=== PATIENT | male | born 1980 | race Hispanic/Latino ===

== ENCOUNTER 2019-12-24 05:35 | Inpatient (IN) | payer OTHER, SELFPAY ==
[2019-12-24] MEDS ORDERED: Piperacillin/Tazobactam 4.5 GM VIAL ONE (06:00)
[2019-12-24 06:02] LABS: #Lymphocytes 0.9 thou/uL (1.20-3.40); #Monocytes 0.8 thou/uL (0.11-0.59); #Neutrophils 10.8 thou/uL (1.40-6.50); %Basophils 0.3 % (0.0-1.0); %Eosinophils 0.1 % (0.0-10.0); %Lymphocytes 7.3 % (21.0-51.0); %Monocytes 6.2 % (0.0-10.0); Hemoglobin 15.7 g/dL (14.0-18.0); Mean Corpuscular HGB CONC 34.9 g/dL (32.0-36.0); Mean Corpuscular Hemoglobin 32.2 pg (27.0-31.0); Mean Corpuscular Volume 92.3 fL (78.0-98.0); Mean Platelet Volume 10.6 fL (7.4-10.4); Platelet Count 157 thou/uL (130-400); RBC Distribution Width 12.1 % (11.5-14.5); Red Blood Cell (RBC) Count 4.88 mill/uL (4.70-6.10); White Blood Cell (WBC) Count 12.5 thou/uL (4.8-10.8)
[2019-12-24] MEDS ORDERED: Ondansetron PF 4 MG/2 ML Vial ONE (06:04)
[2019-12-24] MEDS ORDERED: Morphine 4 MG/ML VIAL ONE ×2 (06:04→07:12)
[2019-12-24 06:26] LABS: ALT (SGPT) 29 U/L (8-55); AST (SGOT) 26 U/L (5-34); Albumin 4.4 g/dL (3.5-5.0); Alkaline Phosphatase 106 U/L (40-110); Anion Gap 13 mmol/L (10-20); BUN (Urea Nitrogen) 10 mg/dL (8.9-20.6); Bilirubin, Total 0.6 mg/dL (0.2-1.2); Calc. Creatinine Clearance 0 mL/min (70-130); Calcium 8.8 mg/dL (7.8-10.44); Carbon Dioxide 24 mmol/L (22-29); Chloride 95 mmol/L (98-107); Estimated GFR-MDRD Greater than 90; Globulin 3.3 g/dL (2.4-3.5); Glucose 149 mg/dL (70-105); Lipase 13 U/L (8-78); Potassium 3.5 mmol/L (3.5-5.1); Protein, Total 7.7 g/dL (6.0-8.3); Sodium 128 mmol/L (136-145)
[2019-12-24] MEDS ORDERED: metroNIDAZOLE 500 MG/100 ML BAG ONE (07:25)
[2019-12-24] MEDS ORDERED: Acetaminophen 325 MG TAB PO PRN (08:32)
[2019-12-24] MEDS ORDERED: Sodium Chloride 0.9% 1,000 ML IV SCH (08:45)
--- NOTE | 2019-12-24 08:50 | CT ---
PRELIMINARY REPORT/[facility]/EMERGENCY AFTER HOURS PROCEDURE: EXAM: CT Abdomen and CT Pelvis, with Contrast DATE/ TIME: 12/24/2019, 6:07 AM INDICATION: Lower abdominal pain x 2 days; nausea; vomiting; diarrhea. Fever. TECHNIQUE: Helical CT was performed through the abdomen and pelvis during the intravenous administra tion of 100 mL Isovue-370. GI contrast was not utilized. Coronal and sagittal reconstructions were generated and reviewed. Exam was performed using one or more of the following dose reduction techniq ues: automated exposure control, adjustment of the mA and/or kV according to patient size, or use of iterative reconstruction technique. COMPARISON: None. FINDINGS: The lung bases are clear. There is no pleural effusion. The stomach contains a small amount of gas and liquid. Nondilated small bowel loops are of varying c aliber with several containing gas. The appendix is seen and is normal. Gas and liquid stool are se en throughout the colon; there is no formed stool. There is no intestinal pneumatosis, portal venous air or pneumoperitoneum. Gallbladder is unremarkable. Liver measures 20.3 cm longitudinally and has a coarse parenchymal bobby quan with hypoattenuation consistent with fatty infiltration. Spleen, pancreas, adrenal glands and ki dneys show normal enhancement. The abdominal aorta tapers with mild atherosclerotic plaquing noted d istally with extension into the common iliac arteries. Inferior vena cava is not flattened. Prostate is not enlarged. Urinary bladder is not distended. There is no ascites. Small umbilical h ernia contains fat. There are defects within the pars interarticularis of L4 with the L4 vertebra di splaced anteriorly with respect to L5 by 7.0 mm. There is associated disc flattening with bulging. IMPRESSION: 1. CT findings within the intestinal tract compatible with (gastro-) enterocolitis. 2. Bilateral spondylolysis of L4 with grade 1 anterolisthesis (7.0 mm) of L4 on L5. Instability wit h weight-bearing and range of motion cannot be excluded. Surgical spine consult is suggested. 3. Hepatomegaly. Hepatosteatosis. 4. Small fat-containing umbilical hernia. ELECTRONICALLY SIGNED BY: Randy Bateman DO Dec 24, 2019 6:58:26 AM CDT This report is intended for review by the ordering physician only, in accordance of law. If you recei ve this report in error, please call [facility] at [phone]. FINAL REPORT EMERGENCY AFTER HOURS CT ABDOMEN AND PELVIS: IMPRESSION: I agree with the preliminary interpretation given by [facility]. In addition, there is apparent irregular enhancing mural thickening at the right lateral margin of the rectum, which could be on th e basis of nondistention, with a mucosal lesion not excluded. Correlation with direct visualization i s recommended. CODE T. POS: BEATRIS
[2019-12-24] MEDS: NS 0.9% w/ 40 MEQ KCL 100 ML IV SCH ×4 (10:23→12:46)
[2019-12-24] MEDS: Morphine 2 MG/ML VIAL SLOW IVP PRN ×2 (10:23→16:11)
[2019-12-24 10:31] VITALS: BMI 34.5
[2019-12-24] MEDS ORDERED: Iopamidol-370 76% 500 ML 1 ML ONE (11:49)
[2019-12-24] MEDS ORDERED: NS 0.9% w/ 40 MEQ KCL 100 ML IV SCH (13:15)
[2019-12-24] MEDS: Sodium Chloride 0.9% 1,000 ML IV SCH ×2 (13:19→23:23)
[2019-12-24] MEDS: Ondansetron PF 4 MG/2 ML Vial IVP PRN ×2 (13:19→20:19)
--- NOTE | 2019-12-24 14:11 | HP ---
CHIEF COMPLAINT: Abdominal pain. HISTORY OF PRESENT ILLNESS: A 39-year-old male with remote history of negative colonoscopy and no abdominal surgery, presenting with the left lower quadrant abdominal pain that started 2 days ago. He did not notice any blood in the stool or urine. No history of hemorrhoids. He had nausea as well as emesis. Pain did not relieve with his Tylenol. Subjective fever. Denies any dysuria or hematochezia. No loose stools. Remote history of ulcer, but not inflammatory bowel disease. Remote history of gastric ulcer without diverticulitis or diverticulosis. Pain is more localized in the left lower quadrant, but it also radiating towards his epigastric area and it is sharp in nature. No flank pain or radiation to the back. ALLERGIES: HE HAS NO KNOWN DRUG ALLERGY. REVIEW OF SYSTEMS: A 13-point review of systems reviewed. The patient has a subjective fever, but without any productive cough or chills. No chest pain, orthopnea, PND. No palpitations. No cough. No short of breath. Denies headache, blurriness, tingling, or numbness in his extremities. No rash. No polyuria, polydipsia. PAST MEDICAL HISTORY: History of peptic ulcer disease. PAST SURGICAL HISTORY: No surgical history. SOCIAL HISTORY: The patient has no alcohol use. He does smoke a pack a day. MEDICATIONS: He takes pantoprazole 40 mg daily. PHYSICAL EXAMINATION: VITAL SIGNS: His temperature is 98.5, pulse 90, blood pressure 146/89, saturating 99% on room air. GENERAL: The patient complained of pain in his abdominal area, so he is in mild distress, but able to give me enough information. The patient appear in moderate distress because of abdominal pain. Otherwise, he is not toxic looking. HEENT: Pupils are equal, round, reactive to light. Anicteric. Mucous membranes moist. CARDIOVASCULAR: Regular rate and rhythm without murmurs, rubs, or gallops. LUNGS: Clear to auscultation bilaterally without wheezing, rales, or rhonchi. ABDOMEN: Soft, nontender, nondistended. Good bowel sounds. EXTREMITIES: Without any pitting edema. LABORATORY DATA: WBC 12.5, hemoglobin 15.7, platelet 157. Sodium 128, potassium 3.5, creatinine 0.86. Rest of the CMP panel normal range including a liver function test and lipase. DIAGNOSTIC STUDIES: CT abdomen showed intestinal tract compatible with enterocolitis. He also has hepatomegaly and hepatic steatosis. Irregular enhancing and mural thickening in the right lateral margin of the rectum. IMPRESSION AND PLAN: This is a 39-year-old male presenting with acute gastroenteritis of 2-day duration. The patient was admitted for supportive measures with IV fluid and antiemetic as well as analgesic. We will get stool studies. The patient does have some mural thickening in the rectal area, could be hemorrhoids versus other. He does have a normal, remote history of colonoscopy in the past. I will request GI input regarding this. The CT did not mention any diverticulitis, however, with elevated white count and GI issue as chief complaint, we will empirically start him on Cipro and Flagyl. Follow up with stool studies as well as urinalysis. It also appears there is no food poisoning. Given the nature of the COVID and atypical presentations in several cases, I will also get a chest x-ray and D- dimer as well. full code. Job ID: [id number] [facility]
[2019-12-24] MEDS: metroNIDAZOLE 500 MG in Premix Bag 1 BAG IVPB SCH ×2 (16:14→23:22)
[2019-12-24] MEDS ORDERED: Morphine 2 MG/ML SYRINGE SLOW IVP PRN (19:27)
[2019-12-24] MEDS ORDERED: Pantoprazole 40 MG VIAL IVP SCH (19:30)
--- NOTE | 2019-12-24 20:12 | CON ---
DATE OF CONSULTATION: 12/24/2019 REQUESTING PHYSICIAN: Dr. Llamas. REASON FOR CONSULTATION: Enterocolitis. HISTORY OF PRESENT ILLNESS: Trent Lu is a 39-year-old man, who was admitted to the hospital today with abdominal pain, nausea, and diarrhea. He says that this came on fairly acutely two days ago. The abdominal pain was initially in the lower abdomen, but is now more generalized throughout the abdomen. He started out with a lot of diarrhea, particularly through the day yesterday, now the diarrhea persists, but he has also been nauseated and had a few episodes of nonbloody emesis. There has been no blood in the stool. He denies any chronic gastrointestinal symptoms, though he does state that he was diagnosed with a stomach ulcer several years ago. He does not think he has ever had a colonoscopy in the past. He was started on ciprofloxacin and Flagyl IV. Stool studies have been collected, but there is no result back yet. Notably, labs show a mild leukocytosis with WBC 12.5, but normal LFTs and lipase. However, he had a CT of the abdomen and pelvis upon admission this morning and this demonstrates fluid-filled loops of bowel as well as liquid stool throughout the colon, all consistent with acute enterocolitis, but there is also an area of irregular mural thickening in the right lateral rectum and direct visualization was recommended. The patient denies any rectal or anal pain or discomfort. There has been no weight loss. There is no family history of GI malignancy that he is aware of. REVIEW OF SYSTEMS: Full review of systems including constitutional, head, eyes, ears, nose, throat, GI, , cardiovascular, respiratory, musculoskeletal, and neurologic systems is negative except as noted in the HPI. PAST MEDICAL HISTORY: Peptic ulcer disease and tobacco abuse. PAST SURGICAL HISTORY: None. ALLERGIES: NO KNOWN DRUG ALLERGIES. OUTPATIENT MEDICATIONS: Pantoprazole 40 mg daily. INPATIENT MEDICATIONS: 1. Ciprofloxacin IV. 2. Flagyl IV. 3. Morphine p.r.n. 4. Zofran p.r.n. SOCIAL HISTORY: He does smoke about one pack of cigarettes per day. He denies alcohol use. FAMILY HISTORY: Negative for GI malignancy that he is aware of. PHYSICAL EXAMINATION: VITAL SIGNS: Temperature 98.5, pulse 90, blood pressure 146/89, and 99% oxygen saturation on room air. GENERAL: A 39-year-old man lying in bed fairly comfortably, in mild distress from abdominal discomfort. MENTAL: Alert and fully oriented. Pleasant, conversational. SKIN: No jaundice. No rashes were palpable. EYES: No scleral icterus. Extraocular movements intact. ENT: Mucous membranes moist. No oral lesions. LYMPH: No submandibular or supraclavicular lymphadenopathy. THYROID: Nontender to palpation. HEART: Regular rate and rhythm. LUNGS: Clear to auscultation bilaterally. ABDOMEN: Bowel sounds present. The abdomen is soft. There is tenderness to palpation in the lower abdomen as well as the epigastrium, but no guarding or rebound tenderness. EXTREMITIES: No peripheral edema. VESSELS: Radial pulses 2+ bilaterally. NEUROLOGIC: Cranial nerves 2 through 12 intact bilaterally. No focal deficits. LABORATORY STUDIES: Sodium 128, potassium 3.5, BUN 10, creatinine 0.86, glucose 149. Lactic acid 1.7, calcium 8.8, lipase 13. LFTs all normal with total bilirubin 0.6, alkaline phosphatase 106, AST 26, ALT 29, albumin 4.4. WBC 12.5, hemoglobin 15.7, platelets 157. Stool studies collected. Fecal lactoferrin is elevated. Clostridium difficile antigen and toxin are negative. RAPID'Campylobacter and Shiga toxins are also negative. Stool culture pending. ASSESSMENT AND PLAN: 1. Acute gastroenteritis. The patient's acute presentation is consistent with an acute infectious gastroenteritis, this may be viral, note the negative Clostridium difficile and Campylobacter, awaiting full stool cultures. Fecal lactoferrin is elevated. Even if stool studies are negative, presentation seems most consistent with acute infectious gastroenteritis, which should resolve within a few days with supportive care. Okay to continue empiric antibiotics in the meantime. 2. Abnormal CT scan, suggesting irregular mural thickening in the right lateral rectum. The patient does not have any anorectal discomfort or any gastrointestinal bleeding. There is no family history of colon cancer. This finding is in the context of an acute gastroenteritis. I do think we should perform colonoscopy at some point, but certainly not in the acute setting. We can plan for outpatient colonoscopy in a few weeks after resolution of this acute episode. Thank you for the consultation. The patient is currently on a clear liquid diet, it can be advanced as tolerated once his symptoms are improving. Please call back anytime with questions or concerns. Job ID: [id number]
[2019-12-24] MEDS: Morphine 4 MG/ML VIAL SLOW IVP PRN (20:19)
[2019-12-25] MEDS: Morphine 4 MG/ML VIAL SLOW IVP PRN ×3 (06:04→22:31)
[2019-12-25 06:48] LABS: Anion Gap 12 mmol/L (10-20); BUN (Urea Nitrogen) 7 mg/dL (8.9-20.6); Calc. Creatinine Clearance 184 mL/min (70-130); Calcium 8.7 mg/dL (7.8-10.44); Carbon Dioxide 27 mmol/L (22-29); Chloride 98 mmol/L (98-107); Estimated GFR-MDRD Greater than 90; Glucose 113 mg/dL (70-105); Potassium 3.6 mmol/L (3.5-5.1); Sodium 133 mmol/L (136-145)
[2019-12-25 07:17] LABS: #Lymphocytes 1.5 thou/uL (1.20-3.40); #Monocytes 1.2 thou/uL (0.11-0.59); #Neutrophils 5.3 thou/uL (1.40-6.50); %Basophils 0.2 % (0.0-1.0); %Eosinophils 0.2 % (0.0-10.0); %Lymphocytes 18.8 % (21.0-51.0); %Monocytes 14.6 % (0.0-10.0); %Neutrophils 66.3 % (42.0-75.0); Hemoglobin 14.7 g/dL (14.0-18.0); Large Platelets SLIGHT; MDiff Complete? YES; Mean Corpuscular Hemoglobin 31.2 pg (27.0-31.0); Mean Corpuscular Volume 91.9 fL (78.0-98.0); Mean Platelet Volume 11.1 fL (7.4-10.4); Platelet Count 146 thou/uL (130-400); Platelet Morphology Comment Appears Adequate; RBC Distribution Width 12.1 % (11.5-14.5); White Blood Cell (WBC) Count 8.1 thou/uL (4.8-10.8)
[2019-12-25] MEDS: metroNIDAZOLE 500 MG in Premix Bag 1 BAG IVPB SCH ×3 (08:17→23:12)
[2019-12-25] MEDS: Sodium Chloride 0.9% 1,000 ML IV SCH ×3 (08:19→23:50)
[2019-12-25] MEDS ORDERED: Morphine 2 MG/ML VIAL SLOW IVP PRN (11:56)
[2019-12-25] MEDS ORDERED: Nicotine 21 MG PATCH TD SCH (12:00)
--- NOTE | 2019-12-25 12:20 | PRG ---
DATE OF SERVICE: 12/25/2019 SUBJECTIVE: The patient is feeling quite a bit better this morning. He did have a lot of diarrhea still throughout the night, every hour or so, but only 2 bowel movements so far this morning. Abdominal discomfort remains generalized, slightly improved, but still required morphine. He is having some recurrence of heartburn, now says that he was taking a daily PPI as an outpatient for the past 5 years for heartburn control. OBJECTIVE: VITAL SIGNS: Temperature 98.5, pulse 85, blood pressure 136/88, and 97% oxygen saturation on room air. GENERAL: No acute distress, sitting up on the edge of the bed comfortably. HEART: Regular rate and rhythm. LUNGS: Clear to auscultation bilaterally. ABDOMEN: Bowel sounds are present. Soft. Some mild tenderness to palpation throughout. No guarding or rebound tenderness. EXTREMITIES: No peripheral edema. LABORATORY STUDIES: Sodium 133, potassium 3.6, BUN 7, creatinine 0.74, glucose 113, and calcium 8.7. LFTs all normal. Lipase normal at 13. WBC 8.1, hemoglobin 14.7, and platelets 146. Stool studies show elevated fecal lactoferrin, but negative Campylobacter, negative shiga toxin, negative C difficile antigen and toxin. Stool culture showing moderate normal enteric howard only. ASSESSMENT AND PLAN: 1. Acute gastroenteritis, likely infectious. Stool studies negative so far with the exception of fecal lactoferrin, but this may represent a viral gastroenteritis. Anticipate continued symptom improvement over the next few days. Okay to continue with empiric antibiotics and supportive care in the meantime. 2. Abnormal CT scan, suggesting irregular mural thickening in the right lateral rectum. The patient does not have any anorectal discomfort or any gastrointestinal bleeding. This finding is in the context of an acute gastroenteritis. We do need to plan for followup colonoscopy at some point, but not in the acute setting. We can plan for outpatient colonoscopy in a few weeks after resolution of this acute episode. 3. Chronic gastroesophageal reflux disease. The patient says he takes daily Prilosec at home. We will go ahead and give him Protonix daily while here. Job ID: [id number]
[2019-12-25 13:54] LABS: SARS-CoV-2 MS2 Positive; SARS-CoV-2 N Gene Negative; SARS-CoV-2 S Gene Negative; SARS-CoV-2 by NAA Not Detected (NotDetected); SARS-CoV-2 orf1ab Negative
--- NOTE | 2019-12-25 14:46 | PDOC.HOSPP ---
- Subjective Encounter Date: 12/25/19 Encounter Time: 13:00 Subjective: still having loose stools q30min per patient, its small amounts no nausea, is able to tolerated liq this am - Objective Vital Signs & Weight: Vital Signs (12 hours) Temp Pulse Resp BP BP Pulse Ox 12/25/19 11:39 98.3 F 70 16 146/73 H 99 12/25/19 07:43 98.5 F 85 18 136/88 97 12/25/19 04:09 98.3 F 82 18 127/78 99 Weight Weight 214 lb I&O: 12/24/19 12/25/19 12/26/19 06:59 06:59 06:59 Intake Total 3550 Balance 3550 Result Diagrams: 12/25/19 05:42 12/25/19 05:42 Hospitalist ROS - Medication Medications: Active Medications Generic Name Dose Route Start Last Admin Trade Name Freq PRN Reason Stop Dose Admin Acetaminophen 650 mg 12/24/19 08:32 12/24/19 19:16 Tylenol PO 650 mg Q4H PRN Administration Headache/Fever/Mild Pain (1-3) Sodium Chloride 1,000 mls @ 100 mls/hr 12/24/19 13:15 12/25/19 08:19 Normal Saline 0.9% IV Not Given .Q10H JEAN Ciprofloxacin/Dextrose 400 mg/ 200 mls @ 200 mls/hr 12/24/19 14:00 12/25/19 01:26 Device IVPB 200 mls 0200,1400 JEAN Administration Metronidazole 500 mg/ Device 100 mls @ 100 mls/hr 12/24/19 16:00 12/25/19 08: 17 IVPB 100 mls 0800,1600,2359 JEAN Administration Morphine Sulfate 2 mg 12/24/19 08:34 12/24/19 16:11 Morphine SLOW IVP 2 mg Q6H PRN Administration Chest Pain Morphine Sulfate 2 mg 12/24/19 19:27 12/25/19 01:26 Morphine SLOW IVP 12/25/19 19:28 2 mg ONE PRN Administration Breakthrough Pain Morphine Sulfate 4 mg 12/24/19 19:28 12/25/19 10:00 Morphine SLOW IVP 4 mg Q4H PRN Administration Severe Pain (7-10) Ondansetron HCl 4 mg 12/24/19 08:32 12/24/19 20:19 Zofran IVP 4 mg Q6H PRN Administration Nausea/Vomiting - Exam General Appearance: awake alert Eye: PERRL, anicteric sclera ENT: no oropharyngeal lesions, dry oral mucosa Neck: supple, no JVD Heart: RRR, no murmur Respiratory: no wheezes, no rales Gastrointestinal: soft, non-tender, non-distended, normal bowel sounds, no guarding, no rigidity Extremities: no cyanosis, no edema Neurological: cranial nerve grossly intact, no focal deficits Psychiatric: normal affect, A&O x 3 Hosp A/P (1) Gastroenteritis Code(s): K52.9 - NONINFECTIVE GASTROENTERITIS AND COLITIS, UNSPECIFIED Status : Acute (2) Moderate dehydration Code(s): E86.0 - DEHYDRATION Status: Acute (3) Hyponatremia Code(s): E87.1 - HYPO-OSMOLALITY AND HYPONATREMIA Status: Resolved (4) Tobacco abuse Code(s): Z72.0 - TOBACCO USE Status: Chronic (5) PUD (peptic ulcer disease) Code(s): K27.9 - PEPTIC ULC, SITE UNSP, UNSP AC OR CHR, W/O HEMOR OR PERF Status: Chronic (6) Obesity (BMI 30.0-34.9) Code(s): E66.9 - OBESITY, UNSPECIFIED Status: Chronic - Plan is on cipro, flagyl and iv fluids encourage po intake of fluids stool studies are -ve so far for infectious agents covid 19 pcr is -ve hemostable
[2019-12-25] MEDS ORDERED: Calcium Carbonate 500 MG ChewTAB PO PRN (17:34)
[2019-12-25] MEDS ORDERED: Mag-Al 1200 mg/1200 mg/30 ML UDCUP PO PRN (17:34)
[2019-12-26] MEDS: metroNIDAZOLE 500 MG in Premix Bag 1 BAG IVPB SCH (08:39)
[2019-12-26] MEDS ORDERED: Nicotine 21 MG PATCH TD SCH (09:00)
--- NOTE | 2019-12-26 09:47 | PRG ---
DATE OF SERVICE: 12/26/2019 SUBJECTIVE: The patient is feeling quite a bit better today. Abdominal discomfort is minimal. Heartburn is better. Diarrhea has also improved. He did have to get up twice in the middle of the night to have bowel movements at 3:30 a.m., and then at 6:00 a.m., but no bowel movement since that time. He has been able to tolerate full liquids for breakfast today, still does not have much of an appetite. OBJECTIVE: VITAL SIGNS: Temperature 98.3, pulse 80, blood pressure 142/75, 98% oxygen saturation on room air. GENERAL: In no acute distress. HEART: Regular rate and rhythm. LUNGS: Clear to auscultation bilaterally. ABDOMEN: Bowel sounds present. Soft, nontender to palpation. EXTREMITIES: No peripheral edema. ASSESSMENT AND PLAN: 1. Acute gastroenteritis, likely infectious, appears to be improving. Continue with supportive care. Expect symptoms are going to continue to rapidly improve and then resolve. I think antibiotics could be discontinued on hospital discharge. Okay to advance diet as tolerated. If he is doing well with improvement in diarrhea and tolerating diet without difficulty, he could be discharged from the hospital even this afternoon from a GI perspective. 2. Abnormal CT scan, suggesting asymmetric thickening in the rectum. This is in the context of an acute gastroenteritis and may just be imaging artifact. Direct visualization was recommended and I would agree with this, but I would not plan for endoscopy in the setting of an acute gastroenteritis. We will plan for followup colonoscopy on an outpatient basis in about 6 weeks. I have given the patient my office number and will also have my office reach out to the patient to arrange for this. Job ID: [id number]
[2019-12-26 11:31] VITALS: BP 116/66; TEMP 98.5
[2019-12-26] MEDS: Sodium Chloride 0.9% 1,000 ML IV SCH (13:54)
--- NOTE | 2019-12-26 15:10 | DIS ---
DATE OF ADMISSION: 12/24/2019 DATE OF DISCHARGE: 12/26/2019 DISPOSITION: Discharged home. PRIMARY CARE PHYSICIAN: No PCP at this time. FINAL DIAGNOSES: Unspecified gastroenteritis, dehydration, hyponatremia, peptic ulcer disease, tobacco usage. DISCHARGE MEDICATIONS: His home medicines; omeprazole 20 mg p.o. b.i.d. ALLERGIES: NO KNOWN MEDICAL ALLERGIES. CODE STATUS: Full. PENDING AT TIME OF DISCHARGE: Nothing. HOSPITAL COURSE: The patient admitted through [facility] to the Hospitalist Service with abdominal pain, nausea, vomiting. Initial laboratory showed a sodium 128, potassium 3.5, creatinine 0.86. Liver function tests; lipase normal. CT showed some enterocolitis, hepatomegaly. Dr. Cardoso, Gastroenterology was consulted. Followup studies; COVID-19, nonreactive. Electrolytes, liver function tests, etc, normal. CBC, unremarkable. Stool studies, Campylobacter, C. diff, blood cultures all negative. I discussed situation with the patient today, read Dr. Cardoso's note, examined Mr. Lu, benign abdomen, normal vital signs. He is ready to go home. He is being discharged on his home medicines. He has been told that he can follow up with [facility]. It is recommended he do that in [address] Cardoso's office will call for an endoscopy of the lower GI tract in 4 to 5 weeks. Job ID: [id number] [facility]
== END 2019-12-26 15:15 | disposition home or self-care (01) | DRG 392 ==
LOC: ERS 05:35 → T4-B 10:03
PROVIDERS: ADMIT Internal Medicine; ATTEND Internal Medicine
DX: K52.9 Noninfective gastroenteritis and colitis, unspecified (principal); E87.1 Hypo-osmolality and hyponatremia; Z20.828 Contact with and (suspected) exposure to other viral communicable diseases; E86.0 Dehydration; K27.9 Peptic ulcer, site unspecified, unspecified as acute or chronic, without hemorrhage or perforation; F17.210 Nicotine dependence, cigarettes, uncomplicated; K21.9 Gastro-esophageal reflux disease without esophagitis; E66.9 Obesity, unspecified; Z79.899 Other long term (current) drug therapy; Z68.34 Body mass index [BMI] 34.0-34.9, adult
CPT/HCPCS: 36415; 74177; 80048; 80053; 83605; 83630; 83690; 85025; 87040; 87045; 87046; 87077; 87186; 87324; 87427; 87449; 87635; 93005; 96365; 96367; 96375; 96376; C9113; J0744; J2270; J2405; J2543; J3480; Q9967; U0003

== ENCOUNTER 2020-07-23 22:48 | Observation (INO) | payer SELFPAY ==
[~2020-07-23 22:48] MED LIST: Iopamidol-370 76% 500 ML 1 ML ONE
[2020-07-23] MEDS ORDERED: Ondansetron PF 4 MG/2 ML Vial ONE (23:06)
[2020-07-23 23:28] LABS: Hemoglobin 15.9 g/dL (14.0-18.0); Mean Corpuscular HGB CONC 33.9 g/dL (32.0-36.0); Mean Corpuscular Hemoglobin 32.1 pg (27.0-31.0); Mean Corpuscular Volume 94.9 fL (78.0-98.0); Mean Platelet Volume 11.2 fL (7.4-10.4); Platelet Count 181 thou/uL (130-400); RBC Distribution Width 12.3 % (11.5-14.5); Red Blood Cell (RBC) Count 4.95 mill/uL (4.70-6.10); White Blood Cell (WBC) Count 20.3 thou/uL (4.8-10.8)
[2020-07-23 23:37] LABS: ALT (SGPT) 26 U/L (8-55); AST (SGOT) 21 U/L (5-34); Albumin 4.6 g/dL (3.5-5.0); Alkaline Phosphatase 121 U/L (40-110); Anion Gap 14 mmol/L (10-20); BUN (Urea Nitrogen) 15 mg/dL (8.9-20.6); Bilirubin, Total 0.4 mg/dL (0.2-1.2); Calc. Creatinine Clearance 0 mL/min (70-130); Calcium 9.4 mg/dL (7.8-10.44); Carbon Dioxide 25 mmol/L (22-29); Chloride 106 mmol/L (98-107); Globulin 3.4 g/dL (2.4-3.5); Glucose 159 mg/dL (70-105); Potassium 4.2 mmol/L (3.5-5.1); Sodium 141 mmol/L (136-145)
[2020-07-23 23:44] LABS: Band 4 % (5-11); Large Platelets SLIGHT; Lymphocytes 9 % (21-51); MDiff Complete? YES; Monocytes 1 % (0-10); Neutrophil 85 % (42-75); Platelet Morphology Comment Appears Adequate
--- NOTE | 2020-07-23 23:47 | CT ---
CT Abdomen Pelvis W Con HISTORY: Right lower quadrant abdominal pain COMPARISON: 02/03/2020 FINDINGS: The lung bases are unremarkable. No calcific gallstones are seen. The liver, spleen, pancreas, adrena l glands and kidneys are normal. No free air, free fluid or lymphadenopathy seen in the abdomen or pelvis. There are vascular calcifications without evidence of aneurysmal dilatation of the abdominal aorta. A fat-containing small umbilical hernia and small fat-containing bilateral inguinal hernia are seen. Bilateral pars articularis defects at L4 with grade 1 anterolisthesis of L4 over L5 are sta ble. The small bowel loops are not abnormally dilated. 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 A normal-appearing appendix is present. IMPRESSION: No evidence of appendicitis.
[2020-07-23] MEDS ORDERED: Ketorolac Tromethamine 30 MG/ML VIAL ONE (23:56)
[2020-07-24] MEDS ORDERED: Morphine 4 MG/ML VIAL ONE ×2 (01:23→03:06)
[2020-07-24] MEDS ORDERED: Ondansetron PF 4 MG/2 ML Vial ONE (01:23)
[2020-07-24 01:29] LABS: Bacteria/HPF None Seen HPF (None Seen); Bilirubin Negative (Negative); Blood, Urine 1+ (Negative); Clarity Clear (Clear); Glucose, Urine (Dipstick) Normal (Negative); Ketone, Urine Negative (Negative); Leukocyte Negative Leu/uL (Negative); Nitrite Negative (Negative); Protein, Urine (Dipstick) 10 mg/dL (Neg-Trace); Squamous Epithelial 0-3 HPF (0-3); Urobilinogen Normal mg/dL (Less than 2); WBC/HPF 0-3 HPF (0-3)
[2020-07-24 01:32] LABS: Specific Gravity, Urine Greater than 1.060 (1.002-1.036)
[2020-07-24 03:47] VITALS: BMI 31.4
[2020-07-24] MEDS ORDERED: Ondansetron ODT 4 MG TAB PO PRN (03:57)
[2020-07-24] MEDS ORDERED: Ondansetron PF 4 MG/2 ML Vial IVP PRN (03:57)
--- NOTE | 2020-07-24 04:05 | PDOC.HHP ---
Hospitalist HPI Abdominal pain nausea vomiting. History of Present Illness: This is a 39-year-old male patient with a history of gastric ulcer who presents with abdominal pain of sudden onset. He notes that suddenly at about 9 PM he started having abdominal pain with nausea and vomiting and diaphoresis. He denied any associated fevers headache chills or chest pain. With worsening pain came to the ED for further evaluation. At presentation his blood pressure was 126 5/81, pulse 78, respirate 22, temperature 98.3 and saturating 97 on room air. His labs showed WBC of 20.3 with no bands. Chemistry showed glucose of 159 with alkaline phosphatase of 121. Urinalysis showed no indication of UTI. He had a CT abdomen which revealed no acute intra-abdominal process. Also had an abdominal ultrasound which showed no pathology. He received pain relief with morphine and ketorolac as well as Zofran. Also received a liter of normal saline. Hospitalist team was consulted to admit. Allergies/Adverse Reactions: Allergy/AdvReac Type Severity Reaction Status Date / Time No Known Allergies Allergy Verified 07/24/20 03:26 Home Medications: Medication Instructions Recorded Confirmed Type Omeprazole 20 mg PO BID 12/25/19 07/24/20 History Past History: Past medical history: Gastric ulcer Past surgical history: None Family history: None Social history: Patient smokes daily, occasional alcohol. No illicit drug use. Hospitalist HPI ROS Constitutional: reports: malaise. denies: fever, chills, sweats, weakness Respiratory: denies: cough, shortness of breath, hemoptysis, SOB with excertion Cardiovascular: denies: chest pain, palpitations, orthopnea, paroxysmal noc. dyspnea Gastrointestinal: reports: nausea, vomiting, abdominal pain. denies: diarrhea, constipation Genitourinary: denies: dysuria, frequency, incontinence, hematuria Musculoskeletal: denies: neck pain, shoulder pain Neurological: denies: weakness, numbness, incoordination, change in speech All other systems reviewed; all pertinent +/- noted in HPI/Subj Hospitalist Exam Vitals: Vital Signs (12 hours) Temp Pulse Resp BP Pulse Ox 07/24/20 03:22 98.3 F 78 18 136/85 97 Weight Weight 206 lb 9.6 oz General Appearance: awake alert General - other findings: In no acute distress Eye: negative: PERRL, anicteric sclera ENT: normocephalic atraumatic, no oropharyngeal lesions Neck: supple, symmetric, no JVD, no thyromegaly, no lymphadenopathy, no carotid bruit Heart: RRR, no murmur, no gallops, no rubs Respiratory: CTAB, no wheezes, no rales, no ronchi Gastrointestinal: soft, non-distended, normal bowel sounds, no palpable masses, no guarding, no rigidity, tender to palpation (Mild right periumbilical tenderness.) Extremities: no cyanosis, no clubbing, no edema Neurological: cranial nerve grossly intact, no weakness, no focal deficits Psychiatric: normal affect, normal behavior, A&O x 3 Hospitalist Results Result Diagrams: 07/23/20 23:00 07/23/20 23:00 Lab results: Laboratory Last Values WBC 20.3 thou/uL (4.8-10.8) H 07/23/20 23:00 RBC 4.95 mill/uL (4.70-6.10) 07/23/20 23:00 Hgb 15.9 g/dL (14.0-18.0) 07/23/20 23:00 Hct 47.0 % (42.0-52.0) 07/23/20 23:00 MCV 94.9 fL (78.0-98.0) 07/23/20 23:00 MCH 32.1 pg (27.0-31.0) H 07/23/20 23:00 MCHC 33.9 g/dL (32.0-36.0) 07/23/20 23:00 RDW 12.3 % (11.5-14.5) 07/23/20 23:00 Plt Count 181 thou/uL (130-400) 07/23/20 23:00 MPV 11.2 fL (7.4-10.4) H 07/23/20 23:00 Neutrophils % (Manual) 85 % (42-75) H 07/23/20 23:00 Band Neuts % (Manual) 4 % (5-11) L 07/23/20 23:00 Lymphocytes % (Manual) 9 % (21-51) L 07/23/20 23:00 Monocytes % (Manual) 1 % (0-10) 07/23/20 23:00 Basophils % (Manual) 1 % (0-2) 07/23/20 23:00 Lymphocytes # Not Reportable 07/23/20 23:00 Large Platelets SLIGHT 07/23/20 23:00 Plt Morphology Comment Appears Adequate 07/23/20 23:00 Sodium 141 mmol/L (136-145) 07/23/20 23:00 Potassium 4.2 mmol/L (3.5-5.1) 07/23/20 23:00 Chloride 106 mmol/L (98-107) 07/23/20 23:00 Carbon Dioxide 25 mmol/L (22-29) 07/23/20 23:00 Anion Gap 14 mmol/L (10-20) 07/23/20 23:00 BUN 15 mg/dL (8.9-20.6) 07/23/20 23:00 Creatinine 0.80 mg/dL (0.7-1.3) 07/23/20 23:00 Estimated GFR (MDRD) Greater than 90 07/23/20 23:00 Glucose 159 mg/dL (70-105) H 07/23/20 23:00 Calcium 9.4 mg/dL (7.8-10.44) 07/23/20 23:00 Total Bilirubin 0.4 mg/dL (0.2-1.2) 07/23/20 23:00 AST 21 U/L (5-34) 07/23/20 23:00 ALT 26 U/L (8-55) 07/23/20 23:00 Alkaline Phosphatase 121 U/L (40-110) H 07/23/20 23:00 Serum Total Protein 8.0 g/dL (6.0-8.3) 07/23/20 23:00 Albumin 4.6 g/dL (3.5-5.0) 07/23/20 23:00 Globulin 3.4 g/dL (2.4-3.5) 07/23/20 23:00 Albumin/Globulin Ratio 1.4 g/dL (1.2-2.2) 07/23/20 23:00 Lipase 19 U/L (8-78) 07/23/20 23:00 Urine Color Light-Yellow (Yellow) 07/24/20 01:00 Urine Clarity Clear (Clear) 07/24/20 01:00 Urine pH 6.0 (5.0-9.0) 07/24/20 01:00 Ur Specific [place] Greater than 1.060 (1.002-1.036) H 07/24/20 01:00 Urine Protein 10 mg/dL (Neg-Trace) 07/24/20 01:00 Urine Glucose (UA) Normal mg/dL (Negative) 07/24/20 01:00 Urine Ketones Negative mg/dL (Negative) 07/24/20 01:00 Urine Blood 1+ (Negative) A 07/24/20 01:00 Urine Nitrite Negative (Negative) 07/24/20 01:00 Urine Bilirubin Negative (Negative) 07/24/20 01:00 Urine Urobilinogen Normal mg/dL (Less than 2) 07/24/20 01:00 Ur Leukocyte Esterase Negative Ramiro/uL (Negative) 07/24/20 01:00 Urine RBC 4-6 HPF (0-3) A 07/24/20 01:00 Urine WBC 0-3 HPF (0-3) 07/24/20 01:00 Ur Squamous Epith Cells 0-3 HPF (0-3) 07/24/20 01:00 Urine Bacteria None Seen HPF (None Seen) 07/24/20 01:00 Hospitalist H&P A/P Plan: This a 39-year-old male patient with a history of gastric ulcer presenting with abdominal pain nausea and vomiting with no clear etiology. Abdominal pain Mainly in right periumbilical area Appendicitis ruled out on CT Given his history of gastric cancer we will start him on Protonix We will monitor for the night Consider GI evaluation in the day. Elevated alkaline phosphatase Alk phos slightly elevated Repeat CMP in the morning Consider GI evaluation. Leukocytosis Unclear etiology Possible mild viral gastroenteritis Repeat CBC CODE STATUSfull code DVT prophylaxis
[2020-07-24] MEDS ORDERED: Sodium Chloride 0.9% 1,000 ML IV SCH (04:30)
[2020-07-24] MEDS ORDERED: Pantoprazole 40 MG VIAL IVP SCH ×2 (04:30→09:00)
--- NOTE | 2020-07-24 08:33 | ULT ---
PRELIMINARY REPORT/[facility]/EMERGENCY AFTER HOURS PROCEDURE: EXAM: US Abdomen Limited, Right Upper Quadrant. CLINICAL HISTORY: RUQ pain today, N/V TECHNIQUE: Real-time ultrasound of the right upper quadrant with image documentation. COMPARISON: CT - CT ABDOMEN PELVIS W CON - 12/24/2019 06:04 AM CDT FINDINGS: LIVER: Measures 17.7 cm. GALLBLADDER: No gallstone. No wall thickening. No pericholecystic fluid. Negative sonographic Andrews's sign COMMON BILE DUCT: No dilation. Measures 3.1 mm PANCREAS: Partially obscured by overlying bowel gas. RIGHT KIDNEY: Unremarkable. No hydronephrosis. Measures 12.4 cm IMPRESSION: Unremarkable right upper quadrant ultrasound. ELECTRONICALLY SIGNED BY: Demarcus Walton MD Jul 24, 2020 1:21:39 AM INTERACTIVE MARKETING STRATEGIST This report is intended for review by the ordering physician only, in accordance of law. If you recei ve this report in error, please call [facility] at [phone]. FINAL REPORT GALLBLADDER ULTRASOUND: Unremarkable gallbladder ultrasound. I am in agreement with the preliminary report. POS: NIKKI
[2020-07-24] MEDS ORDERED: FLU VACC QS2020-21(6MOS UP)/PF 60 MCG/0.5 ML SYRINGE IM ONE (09:00)
[2020-07-24] MEDS ORDERED: Enoxaparin Sodium 40 MG/0.4 ML SYRINGE SC SCH (09:00)
[2020-07-24 17:32] VITALS: TEMP 98.3
[2020-07-24 17:52] VITALS: BP 129/78
--- NOTE | 2020-07-25 04:37 | DIS ---
DATE OF ADMISSION: 07/24/2020 DATE OF DISCHARGE: 07/24/2020 DISCHARGE DIAGNOSES: 1. Gastroenteritis, nonspecific, resolving. 2. Abdominal pain secondary to gastroenteritis, resolving. 3. Leukocytosis, secondarily to gastroenteritis. CONSULTATIONS: None. PERTINENT LABORATORY AND X-RAY FINDINGS: Lipase 19. Alkaline phosphatase 121. CBC showed a white blood cell count of 20.3, hemoglobin 15.9, hematocrit 47, and platelet count 181 with 85% neutrophils. CT of the abdomen and pelvis dated 07/23/2020, showed no acute intraabdominal process. HOSPITAL COURSE: The patient was observed on the medical floor after initially presenting with increased abdominal pain with nausea and vomiting. The patient underwent evaluation including CT of the abdomen and pelvis showing no acute intraabdominal process. The patient received general supportive management in addition to IV fluids, antiemetics, Toradol, and morphine sulfate. The patient clinically improved with general supportive management and observation with likely underlying etiology of gastroenteritis. The patient was initiated on clear liquids and tolerated without return of symptoms with resolution of abdominal pain by the time of discharge. I have examined the patient at the time of discharge and discussed followup instructions. The patient verbalized understanding and in agreement and ready for discharge on 07/24/2020. DISCHARGE MEDICATIONS: Omeprazole 20 mg p.o. b.i.d. FOLLOWUP: The patient may follow up with [facility] after discharge. CONDITION ON DISCHARGE: Stable. ACTIVITY: Ad-janae. DIET: Regular with clear liquids x24 hours. CODE STATUS: Full. DISPOSITION: Home on 07/24/2020. Job ID: [id number]
--- NOTE | 2020-07-28 13:10 | EKG ---
Test Reason : Blood Pressure : / mmHG Vent. Rate : 056 BPM Atrial Rate : 056 BPM P-R Int : 138 ms QRS Dur : 096 ms QT Int : 388 ms P-R-T Axes : 034 017 021 degrees QTc Int : 374 ms Sinus bradycardia with sinus arrhythmia Otherwise normal ECG Confirmed by MAME LEA M.D. ([id number]), industrial editor CYNDI CARTER ([id number]) on 07/28/2020 1:10:32 PM Referred By: Confirmed By:MAME LEA M.D.
== END 2020-07-24 17:42 | disposition home or self-care (01) ==
LOC: ERS 22:48 → T4-B 07-24 01:48
PROVIDERS: ADMIT Student in an Organized Health Care Education/Training Program; ATTEND Family Medicine
DX: K52.9 Noninfective gastroenteritis and colitis, unspecified (principal); D72.829 Elevated white blood cell count, unspecified; K25.9 Gastric ulcer, unspecified as acute or chronic, without hemorrhage or perforation; F17.210 Nicotine dependence, cigarettes, uncomplicated; K42.9 Umbilical hernia without obstruction or gangrene; K40.20 Bilateral inguinal hernia, without obstruction or gangrene, not specified as recurrent; K57.10 Diverticulosis of small intestine without perforation or abscess without bleeding; Z79.899 Other long term (current) drug therapy
CPT/HCPCS: 36416; 74177; 76705; 80053; 81003; 81015; 83690; 85025; 93005; 96372; 96374; 96375; 96376; C9113; G0378; J1650; J1885; J2270; J2405; Q9967